=== PATIENT | male | born 1985 | race Caucasian/White ===

== ENCOUNTER 2018-07-23 08:08 | Emergency (ER) | payer OTHER ==
[2018-07-23 08:13] VITALS: BP 139/90; PULSE 61; TEMP 98.5; BMI 34.9
[2018-07-23] MEDS ORDERED: predniSONE 20 MG TABLET (UD) PO ONE (08:34)
--- NOTE | 2018-07-23 08:42 | PDOC ---
History of Present Illness - General Chief Complaint: Poison [place],Poison Jasvir Exposure Stated Complaint: POISON JASVIR Time Seen by Provider: 07/23/18 08:10 History Source: Patient Exam Limitations: No Limitations - History of Present Illness Initial Comments: 07/23/18 08:37 Healthy 33-year-old male with no significant past medical history presents with bilateral periorbital and forehead redness and itching and swelling over the last 2 days. Patient was hiking on Sunday evening, awoke Sunday morning with some mild itching and redness around his eyes, has been progressively worsening since then. No fevers or chills, slight discomfort to the area, no vision changes or eye drainage. Has noticed similar lesion in his upper gluteal cleft, otherwise no diffuse rash. Rashes identical to past poison jasvir exposure, applied calamine lotions with minimal relief, presents for evaluation. Past History - Past Medical History Allergies/Adverse Reactions: Allergies Allergy/AdvReac Type Severity Reaction Status Date / Time cefprozil [From Cefzil] Allergy Verified 07/23/18 08:09 Home Medications: Ambulatory Orders predniSONE [Deltasone -] 20 mg PO DAILY #39 tablet 07/23/18 COPD: No Other medical history: DENIES - Suicide/Smoking/Psychosocial Hx Smoking History: Current every day smoker Number of Cigarettes Smoked Daily: 3 Information on smoking cessation initiated: Yes Hx Alcohol Use: Yes (ONCE A WEEK) Drug/Substance Use Hx: No Review of Systems - Review of Systems Constitutional: No: Chills, Fever, Night Sweats HEENTM: No: Recent change in vision, Double Vision Respiratory: No: Shortness of Breath ABD/GI: No: Nausea, Vomiting Integumentary: Yes: See HPI Neurological: No: Weakness, Ataxia All Other Systems: Reviewed and Negative *Physical Exam - Vital Signs Last Vital Signs Temp Pulse Resp BP Pulse Ox 98.5 F 61 17 139/90 100 07/23/18 08:09 07/23/18 08:09 07/23/18 08:09 07/23/18 08:09 07/23/18 08:09 - Physical Exam Comments: 07/23/18 08:39 Vitals are within normal limits GENERAL: The patient is awake, alert, and fully oriented, in no acute distress. Seated comfortably in stretcher, speaking full sentences. HEAD: Normal with no signs of trauma. EYES: Left greater than right periorbital edema without tenderness or induration or fluctuance. Pupils equal, round and reactive to light, extraocular movements intact, sclera anicteric, conjunctiva clear. EXTREMITIES: Normal range of motion, no edema. NEUROLOGICAL: Normal speech, normal gait. PSYCH: Normal mood, normal affect. SKIN: Near confluent erythema along the forehead, left periorbital region greater than right periorbital region, well-demarcated without vesicles, no bleeding or purulence. There is early encrusted lesion over the medial left eyebrow, no open skin lesions. Similar 4-5 cm erythematous region in the upper gluteal cleft. Remainder of skin is clear. Medical Decision Making - Medical Decision Making 07/23/18 08:42 33-year-old male presents with facial and buttock poison jasvir rash after hiking, no evidence of superimposed infection. No evidence of ocular involvement, neurologically intact and well-appearing with normal vital signs. Given facial involvement, will start oral prednisone - 21 day course recommended Continue calamine lotion, Benadryl as needed Understands return criteria and attention for signs of infection *DC/Admit/Observation/Transfer Diagnosis at time of Disposition: Poison jasvir dermatitis - Discharge Dispostion Disposition: HOME Condition at time of disposition: Stable - Prescriptions Prescriptions: predniSONE [Deltasone -] 20 mg PO DAILY #39 tablet - Referrals Referrals: Marisa Damon MD [Staff Physician] - - Patient Instructions Printed Discharge Instructions: DI for Poison Jasvir Allergy Additional Instructions: Activity as tolerated. Stay hydrated. The rash is most consistent with a poison jasvir rash. At this time, there does not appear to be any additional infection. Take prednisone as prescribed as a steroid: Take 60mg (3 pills) daily for 6 days starting tomorrow since we gave you the first dose in the ER, Then 40mg (2 pills) daily for 7 days, Then 20mg (1 pill) daily for 7 days. Continue calamine lotion applications, can try taking Benadryl 25-50 mg to relieve itching. Tylenol 1000 mg every 8 hours and/or ibuprofen 600 mg every 8 hours as needed for pain. Ice the affected areas for 20 minutes every 3-4 hours to reduce swelling. Continue any other medications as previously prescribed by your physician. You should follow up with your primary doctor or a radiotelegraph operator as needed as soon as possible regarding today's emergency department visit. Return to the emergency department for any new or concerning symptoms, particularly persistent or worsening rash, vision changes or eye pain, fevers or chills, increasing pain. - Post Discharge Activity
[2018-07-23] MEDS ORDERED: predniSONE 20 MG TABLET (UD) ONE (08:43)
== END 2018-07-23 08:55 | disposition home or self-care (01) ==
LOC: FER 08:08
DX: L23.7 Allergic contact dermatitis due to plants, except food (principal); F17.210 Nicotine dependence, cigarettes, uncomplicated
CPT/HCPCS: 99281-25

== ENCOUNTER 2018-10-06 08:52 | Emergency (ER) | payer OTHER ==
--- NOTE | 2018-10-06 09:18 | PDOC ---
History of Present Illness - General Chief Complaint: Overdose Stated Complaint: DRUG ABUSE Time Seen by Provider: 10/06/18 09:10 History Source: Patient Exam Limitations: No Limitations - History of Present Illness Initial Comments: 10/06/18 09:10 33 yo male h/o substance abuse here wtih c/o n/v/d sweats after taking suboxone. pt states he has been taking percocets from time to time. then took suboxone today. denies other substance use. states only took 2 percocet prior to suboxone. denies methadone use. does not want to go to rehab. Past History - Past Medical History Allergies/Adverse Reactions: Allergies Allergy/AdvReac Type Severity Reaction Status Date / Time cefprozil [From Cefzil] Allergy Verified 07/23/18 08:09 Home Medications: Ambulatory Orders Buprenorphine HCl/Naloxone HCl [Suboxone 8 mg-2 mg Sl Tablets] 1 each SL ONCE Ondansetron [Ondansetron Odt] 8 mg PO TID PRN #10 tab.rapdis 10/06/18 Oxycodone HCl/Acetaminophen [Percocet 5-325 mg Tablet] 1 tab PO Q4H 10/06/18 COPD: No - Suicide/Smoking/Psychosocial Hx Smoking History: Current every day smoker Number of Cigarettes Smoked Daily: 3 'Breaking Loose' booklet given: 07/23/18 Hx Alcohol Use: Yes (ONCE A WEEK) Drug/Substance Use Hx: No Review of Systems - Review of Systems Constitutional: No: Chills, Diaphoresis HEENTM: No: Eye Pain Respiratory: No: Cough, Orthopnea Cardiac (ROS): No: Chest Pain, Edema ABD/GI: Yes: Diarrhea, Nausea, Vomiting : No: Burning, Dysuria, Discharge Musculoskeletal: No: Back Pain Integumentary: No: Bruising Neurological: No: Headache All Other Systems: Reviewed and Negative *Physical Exam - Physical Exam General Appearance: Yes: Appropriately Dressed Neck: positive: Trachea midline Respiratory/Chest: positive: Lungs Clear, Normal Breath Sounds Cardiovascular: positive: Regular Rate, S1, S2, Tachycardia Gastrointestinal/Abdominal: positive: Normal Bowel Sounds, Flat, Soft. negative : Tender Extremity: positive: Normal Capillary Refill. negative: Normal Inspection Integumentary: positive: Normal Color, Dry, Warm Neurologic: positive: Fully Oriented, Alert, Normal Mood/Affect ED Treatment Course - LABORATORY CBC & Chemistry Diagram: 10/06/18 09:48 10/06/18 09:48 Medical Decision Making - Medical Decision Making 10/06/18 11:58 pt labs unremarkable, would like to go to [facility] for detox. 10/06/18 12:38 d/w [facility] detox center, do not accept [place] insurance. were given phone number for other detox centers including [facility], [facility], [facility] and [facility]. unable to reach someone to discuss admission . pt family and pt given phone number for detox. told to go to intake at any of those centers to arrange detox. *DC/Admit/Observation/Transfer Diagnosis at time of Disposition: Narcotic addiction, Opiate withdrawal - Discharge Dispostion Disposition: HOME Condition at time of disposition: Improved - Prescriptions Prescriptions: Ondansetron [Ondansetron Odt] 8 mg PO TID PRN #10 tab.rapdis PRN Reason: Nausea - Referrals - Patient Instructions Printed Discharge Instructions: DI for Opioid Addiction Additional Instructions: you can go to detox at [facility], [facility], or [facility] , or [facility] detox/ rehab center in the [place]. you will have to go to their intake area to discuss inpatient treatment. for your nausea you can take zofran 8 mg every 8 hrs as needed for nausea / vomiting. - Post Discharge Activity
[2018-10-06] MEDS ORDERED: SODIUM CHLORIDE 0.9% 1000 ML INFUS.BAG IV ONE (09:19)
[2018-10-06] MEDS ORDERED: ONDANSETRON 4 MG/2 ML VIAL IVPUSH ONE (09:19)
[2018-10-06] MEDS ORDERED: LORazepam 2 MG/ML SDV VIAL ONE (09:33)
[2018-10-06] MEDS ORDERED: ONDANSETRON 4 MG/2 ML VIAL ONE (09:34)
[2018-10-06 09:52] VITALS: TEMP 98.5; BMI 34.8
[2018-10-06 10:13] LABS: BASO % 0.5 % (0-2.0); EOS % 1.5 % (0-4.5); HEMATOCRIT 41.8 % (35.4-49); HEMOGLOBIN 13.5 GM/dl (11.7-16.9); LYMPH % 15.9 % (8-40); MCH 28.6 pg (25.7-33.7); MCHC 32.4 g/dl (32.0-35.9); MEAN CELL VOLUME 88.4 fl (80-96); MEAN PLT VOLUME 9.2 fl (7.5-11.1); NEUT % 76.1 % (42.8-82.8); PLATELET COUNT 267 K/MM3 (134-434); RBC 4.72 M/mm3 (4.00-5.60); RDW 12.5 % (11.9-15.9); WHITE BLOOD COUNT 5.9 K/mm3 (4.0-10.8)
[2018-10-06 10:37] LABS: ALBUMIN 4.4 g/dl (3.4-5.0); BILIRUBIN,TOTAL 0.5 mg/dl (0.2-1); CALCIUM 9.4 mg/dl (8.5-10); CREATININE 0.7 mg/dl (0.55-1.3); POTASSIUM 3.8 mmol/L (3.5-5.1); TOT PROT 7.8 g/dl (6.4-8.2)
[2018-10-06] MEDS ORDERED: KETOROLAC TROMETHAMINE 30 MG/1 ML VIAL IVPUSH ONE (11:16)
[2018-10-06] MEDS ORDERED: KETOROLAC TROMETHAMINE 30 MG/1 ML VIAL ONE (11:20)
[2018-10-06 13:14] VITALS: BP 125/64; PULSE 74
--- NOTE | 2018-10-07 00:10 | EKG ---
Test Reason : Blood Pressure : / mmHG Vent. Rate : 074 BPM Atrial Rate : 074 BPM P-R Int : 174 ms QRS Dur : 106 ms QT Int : 416 ms P-R-T Axes : 037 -23 -06 degrees QTc Int : 461 ms NORMAL SINUS RHYTHM INCOMPLETE RIGHT BUNDLE BRANCH BLOCK CANNOT RULE OUT ANTERIOR INFARCT , AGE UNDETERMINED ABNORMAL ECG NO PREVIOUS ECGS AVAILABLE Confirmed by MD Tereza, Myles ([id number]) on 10/07/2018 12:10:41 AM Referred By: MD RIZVI Confirmed By:Myles Starks MD
== END 2018-10-06 13:15 | disposition home or self-care (01) ==
LOC: FER 08:52
PROC: 3E0333Z Introduction of Anti-inflammatory into Peripheral Vein, Percutaneous Approach (ICD-10-PCS; principal; 2018-10-06)
PROC: 3E033NZ Introduction of Analgesics, Hypnotics, Sedatives into Peripheral Vein, Percutaneous Approach (ICD-10-PCS; 2018-10-06)
PROC: 3E033GC Introduction of Other Therapeutic Substance into Peripheral Vein, Percutaneous Approach (ICD-10-PCS; 2018-10-06)
PROC: 3E0337Z Introduction of Electrolytic and Water Balance Substance into Peripheral Vein, Percutaneous Approach (ICD-10-PCS; 2018-10-06)
DX: T65.891A Toxic effect of other specified substances, accidental (unintentional), initial encounter (principal); R11.2 Nausea with vomiting, unspecified; F17.210 Nicotine dependence, cigarettes, uncomplicated; F11.20 Opioid dependence, uncomplicated; F11.23 Opioid dependence with withdrawal
CPT/HCPCS: 36415; 80053; 85025; 93005; 99283-25; J7030